=== PATIENT | male | born 1980 | race Caucasian/White ===

== ENCOUNTER 2025-10-04 11:36 | Emergency (ER) | payer OTHER ==
[~2025-10-04] VITALS: Ht 170.2 cm; Wt 79.0 kg
[2025-10-04 11:40] VITALS: TEMP 98.3; O2SAT 98
[2025-10-04] MEDS: METHOCARBAMOL 500MG TABLET PO ONE (13:01)
[2025-10-04] MEDS: IBUPROFEN 600MG TABLET PO ONE (13:01)
[2025-10-04] MEDS ORDERED: LIDO700A30 TP (14:38)
[2025-10-04] MEDS ORDERED: IBUP-1455 MT (14:38)
[2025-10-04] MEDS ORDERED: METH-653 MT (14:38)
[2025-10-04 14:56] VITALS: BP 147/85; PULSE 79; RESP 22; O2SAT 99
== END 2025-10-04 14:59 | disposition home or self-care (01) ==
LOC: ER 11:36
DX: S33.5XXA Sprain of ligaments of lumbar spine, initial encounter (principal); S13.4XXA Sprain of ligaments of cervical spine, initial encounter; Z79.899 Other long term (current) drug therapy; V89.2XXA Person injured in unspecified motor-vehicle accident, traffic, initial encounter; Y93.89 Activity, other specified; Y92.410 Unspecified street and highway as the place of occurrence of the external cause; Y99.8 Other external cause status
CPT/HCPCS: 73030; 73130; 70450; 72125; 72131; 99284; Z7610; A4606